=== PATIENT | female | born 1955 | race Caucasian/White ===

== ENCOUNTER → 2017-03-11 | Outpatient (CLI) | payer OTHER ==
[~2017-03-11] MED LIST: ASPIRIN81 M2 PO; BENICAR HCT 401 EACH PO; BUTRANS1 EAC4 TD; DYAZIDE 37.5-21 EACH PO; HYDROCHLOROTHIA25 M2 PO; HYDROCODONE-AP1 EA11 PO; HYDROCODONE-AP1 EA15 PO; LIPITOR20 MG PO; LIPITOR40 MG PO; LOSARTAN POTAS100 MG PO; METFORMIN HCL500 MG PO; POTASSIUM20 PO; PRILOSEC 20 MG20 MG PO; PRILOSEC40 MG PO; TOPROL XL200 MG PO; ULTRAM 50MG TAB50 MG PO; VICTOZA 3-0.6 MG/0.1 INJECTION; VITAMIN D1000 UNI1 PO; VITAMIN D2000 UNIT PO; XANAX PO; XANAX1 MG PO
== END ==
LOC: RAD 13:57
DX: J44.9 Chronic obstructive pulmonary disease, unspecified (principal)

== ENCOUNTER → 2017-08-26 | Outpatient (CLI) | payer OTHER | LOC: RAD 15:50 | DX: M79.604 Pain in right leg (principal); M79.9 Soft tissue disorder, unspecified ==

== ENCOUNTER → 2017-12-30 | Outpatient (CLI) | payer OTHER ==
[~2017-12-30] MED LIST changes: +ALBUTEROL2.5 MG/31 INH; +AZITHROMYCIN 2250 MG PO; +MOBIC15 MG PO; +ORPHENADRINE C100 M2 PO; +PREDNISONE 20 M20 MG PO
== END ==
LOC: RAD 12:03
DX: Z12.31 Encounter for screening mammogram for malignant neoplasm of breast (principal); I10 Essential (primary) hypertension

== ENCOUNTER → 2018-01-12 | Outpatient (CLI) | payer OTHER | LOC: CAT 10:30 | DX: S22.080D Wedge compression fracture of T11-T12 vertebra, subsequent encounter for fracture with routine healing (principal); M47.26 Other spondylosis with radiculopathy, lumbar region; R91.8 Other nonspecific abnormal finding of lung field; I25.10 Atherosclerotic heart disease of native coronary artery without angina pectoris; X58.XXXD Exposure to other specified factors, subsequent encounter ==

== ENCOUNTER → 2018-01-31 | Outpatient (CLI) | payer OTHER | LOC: RAD 08:34 | DX: J18.9 Pneumonia, unspecified organism (principal); I70.0 Atherosclerosis of aorta ==

== ENCOUNTER → 2018-03-09 | Outpatient (CLI) | payer OTHER | LOC: NUC 03-02 10:20 | DX: M81.0 Age-related osteoporosis without current pathological fracture (principal); M85.89 Other specified disorders of bone density and structure, multiple sites; Z78.0 Asymptomatic menopausal state ==

== ENCOUNTER → 2018-07-01 | Outpatient (CLI) | payer OTHER | LOC: ULTRA 12:55 | DX: N28.1 Cyst of kidney, acquired (principal); E27.9 Disorder of adrenal gland, unspecified; R30.0 Dysuria ==

== ENCOUNTER → 2018-09-15 | Outpatient (CLI) | payer OTHER ==
[~2018-09-15] VITALS: Ht 167.6 cm; Wt 97.5 kg
[~2018-09-15] MED LIST changes: +CALCIUM 500 +1 EAC5 PO; +CARISOPRODOL 3350 MG PO; +MAGOX 400400 MG PO; +OMEPRAZOLE40 MG PO; -PRILOSEC40 MG PO; +TOPROL XL100 MG PO; +VENTOLIN HFA 1818 GM INH; +VICTOZA0.6 MG/0.1 SUBQ; +ZOLPIDEM TARTRA10 MG PO
--- NOTE | ~2018-09-15 | P ---
[facility] [place] [address] PROCEDURE REPORT Name: AFIA MALCOLM Room #: REG [facility]#: [id number] Admission: 09/15/18 ������������������ Attend Phys: Nathan Luna MD Discharge: ������������������ Date of : 51 Report #: [id number] THIS REPORT FOR: //name// CC: Nathan Manriquez MD DATE OF SERVICE: 09/15/2018 BRIEF HISTORY: The patient is a 63-year-old woman for average risk screening colonoscopy. She reports her last colonoscopy was 10 years ago and was negative. PREOPERATIVE DIAGNOSIS: Average risk screening colonoscopy. POSTOPERATIVE DIAGNOSES: 1. Multiple diminutive polyps. 2. Moderately severe sigmoid diverticulosis coli. MEDICATIONS: Deep sedation with propofol per anesthesia. SPECIMENS: 1. Diminutive polyp at 50 cm. 2. Diminutive polyp, mid ascending colon. 3. Diminutive polyp, proximal transverse colon. ESTIMATED BLOOD LOSS: 3 mL. PROCEDURE: Colonoscopy to cecum and terminal ileum with biopsy. FINDINGS: Prior to propofol sedation, procedure of colonoscopy discussed with the patient as well as potential risks and its complications. She indicates she understands and desires to proceed. DESCRIPTION OF PROCEDURE: With the patient in left lateral decubitus position, digital examination was completed, which revealed no abnormalities. Subsequently, the Olympus video colonoscope was introduced in the rectum and advanced under direct vision to the cecum. Cecum was identified by the ileocecal valve and the appendiceal orifice. I was able to visualize the distal segment of the terminal ileum, which was inspected and noted to be unremarkable. At that point, the scope was slowly withdrawn and careful circumferential views were obtained. Upon slow withdrawal of the scope, there were some limitations of the prep. However, we were able to clean up much of this material and overall, a reasonably good prep was obtained. The mucosa was within normal limits, normal vascular pattern, normal light reflex. In the mid ascending colon, a diminutive polyp was seen and removed with biopsy forceps. In the [facility] [address] [place] [address] PROCEDURE REPORT Name: AFIA MALCOLM Room #: REG LAZARA Lee.#: [id number] Admission: 09/15/18 ������������������ Attend Phys: Nathan Luna MD Discharge: ������������������ Date of : 51 Report #: [id number] proximal transverse colon, another diminutive polyp was seen and removed with biopsy forceps. The scope was further withdrawn and no abnormalities were noted until the descending colon was reached and at 50 cm, a diminutive polyp was seen and was removed with biopsy forceps. Scope was withdrawn through the sigmoid colon. There was noted to be moderately severe diverticular disease without endoscopic evidence of diverticulitis. Scope was withdrawn. No additional neoplastic lesions were seen. Scope was withdrawn in the rectum. No abnormalities were seen. Scope was withdrawn. The patient tolerated the procedure well. CONDITION OF THE PATIENT UPON DISCHARGE: Following procedure, the patient drowsy, aroused, conversant and will be discharged home when fully ambulatory. INSTRUCTIONS TO THE PATIENT AND FAMILY AT THE TIME OF DISCHARGE: We will follow up on the path and make further recommendations. If all three polyps are adenomas, she is to return in three years. If one or two adenomas, then five years would be indicated. If none are adenomas, then 10 years would be indicated. She will return under the care of Dr. Lucrecia Manriquez and return to see me as needed. ��������������������������������������������� ���������������������������������������� By: ��������������������������������������������� 0824 1157 Nathan Luna MD /nt
--- NOTE | 2018-09-16 17:06 | PATH ---
[facility] [place] [address] PATHOLOGY RPT PROCEDURE Name: AFIA MALCOLM Room #: REG LAZARA Lee.#: [id number] ������������������ Admission: 09/15/18 ������������������ Date of : 51 Discharge: Report #: [id number] Path Case #: [id number] LCA Accession Number: [id number] . 01 Material submitted: . PART A: colon - POLYP AT 50 CM. Modifiers: 50 CM PART B: colon - POLYP AT MID ASCENDING COLON. Modifiers: mid, ascending PART C: colon - POLYP AT PROXIMAL TRANSVERSE COLON. Modifiers: transverse . 01 Clinical history: . Screening, history of polyps Colon polyp, diverticulosis . 02 Diagnosis: A. Polyp, at 50 cm, endoscopic biopsy: - Inflamed hyperplastic polyp. - Negative for dysplasia. . B. Polyp, at mid ascending colon, endoscopic biopsy: - Hyperplastic polyp. - Negative for dysplasia. . C. Polyp, at proximal transverse colon, endoscopic biopsy: - Minute tubular adenoma/crypt adenoma. - Negative for high-grade dysplasia. . (IUV:quality management coordinator; 09/16/2018) MBR/09/16/2018 . 02 Electronically signed: . Lona Kiran MD, Pathologist NPI- [id number] . 01 Gross description: . A. The specimen is received in formalin, labeled "Marco, Afia, polyp at 50 cm" and consists of a fragment of cummins tissue measuring 0.4 x 0.4 x 0.2 cm which is entirely submitted in A1. . B. The specimen is received in formalin, labeled "Malcolm, Afia, polyp at mid ascending colon" and consists of a fragment of cummins tissue measuring 0.5 x 0.3 x 0.2 cm which is entirely submitted in B1. . C. The specimen is received in formalin, labeled "Marco, Afia, polyp at proximal transverse colon" and consists of a fragment of cummins tissue measuring 0.5 x 0.4 x 0.1 cm which is entirely submitted in C1. (SDY; 09/15/2018) SYU/[address] [address] PATHOLOGY RPT PROCEDURE Name: AFIA MALCOLM PATRICIA Room #: REG CLWilliam Collado#: [id number] ������������������ Admission: 09/15/18 ������������������ Date of : 51 Discharge: Report #: [id number] Path Case #: [id number] . 02 Pathologist provided ICD-10: K63.5, D12.3 . 02 CPT . 191676, 096970, 931748 Specimen Comment: A courtesy copy of this report has been sent to Specimen Comment: [phone], . Specimen Comment: Report sent to / DR CULLEN Performed at: [address], [place] [id number] MD Armaan Crawley MD Phone: [phone] Performed at: [address] [id number] MD Lona Kiran MD Phone: [phone]
== END | disposition home or self-care (01) ==
LOC: GI 08-18 14:54
DX: Z12.11 Encounter for screening for malignant neoplasm of colon (principal); Z86.010 Personal history of colon polyps; D12.3 Benign neoplasm of transverse colon; K63.5 Polyp of colon; K57.30 Diverticulosis of large intestine without perforation or abscess without bleeding; K21.9 Gastro-esophageal reflux disease without esophagitis; I10 Essential (primary) hypertension; E11.9 Type 2 diabetes mellitus without complications; I25.2 Old myocardial infarction; E78.00 Pure hypercholesterolemia, unspecified; F32.9 Major depressive disorder, single episode, unspecified; J43.9 Emphysema, unspecified; F41.9 Anxiety disorder, unspecified; F17.210 Nicotine dependence, cigarettes, uncomplicated; Z95.0 Presence of cardiac pacemaker; Z95.5 Presence of coronary angioplasty implant and graft; Z98.890 Other specified postprocedural states; Z79.899 Other long term (current) drug therapy; Z90.49 Acquired absence of other specified parts of digestive tract; Z90.710 Acquired absence of both cervix and uterus; Z98.84 Bariatric surgery status; Z98.41 Cataract extraction status, right eye; Z98.42 Cataract extraction status, left eye; Z79.4 Long term (current) use of insulin; Z88.8 Allergy status to other drugs, medicaments and biological substances; Z79.82 Long term (current) use of aspirin
CPT/HCPCS: 62110; 62900

== ENCOUNTER → 2019-06-28 | Outpatient (CLI) | payer OTHER | LOC: CAT 05-19 10:47 → RAD 11:02 → CAT 11:02 | DX: Z12.31 Encounter for screening mammogram for malignant neoplasm of breast (principal); J43.8 Other emphysema; D35.01 Benign neoplasm of right adrenal gland; R91.1 Solitary pulmonary nodule ==

== ENCOUNTER → 2019-08-16 | Outpatient (CLI) | payer OTHER | LOC: SJCVC 14:52 | PROVIDERS: ATTEND Internal Medicine Cardiovascular Disease | DX: R94.31 Abnormal electrocardiogram [ECG] [EKG] (principal); I25.10 Atherosclerotic heart disease of native coronary artery without angina pectoris; I10 Essential (primary) hypertension; R60.9 Edema, unspecified; I47.2 Ventricular tachycardia; E78.5 Hyperlipidemia, unspecified; E78.00 Pure hypercholesterolemia, unspecified; Z95.810 Presence of automatic (implantable) cardiac defibrillator; Z79.82 Long term (current) use of aspirin; Z79.899 Other long term (current) drug therapy; Z82.49 Family history of ischemic heart disease and other diseases of the circulatory system; F17.210 Nicotine dependence, cigarettes, uncomplicated ==

== ENCOUNTER → 2019-09-11 | Outpatient (CLI) | payer OTHER | LOC: SJCVCIMAG 11:09 | PROVIDERS: ATTEND Internal Medicine Cardiovascular Disease | DX: I25.10 Atherosclerotic heart disease of native coronary artery without angina pectoris (principal); I49.3 Ventricular premature depolarization; I10 Essential (primary) hypertension; E78.00 Pure hypercholesterolemia, unspecified; J44.9 Chronic obstructive pulmonary disease, unspecified; E11.9 Type 2 diabetes mellitus without complications; F17.210 Nicotine dependence, cigarettes, uncomplicated; Z79.899 Other long term (current) drug therapy ==

== ENCOUNTER 2019-10-12 09:39 | Emergency (ER) | payer OTHER ==
[~2019-10-12] VITALS: Ht 165.1 cm; Wt 93.0 kg
[2019-10-12 10:06] LABS: ABSOLUTE NEUTROPHILS 3.7 thou/uL (1.4-8.2); BASOPHILS 1.1 % (0.0-2.0); EOSINOPHILS 2.4 % (0.0-3.0); HEMATOCRIT 40.5 % (37.0-47.0); HEMOGLOBIN 13.6 gm/dL (12.0-15.0); LYMPHOCYTES 30.6 % (24.0-44.0); MCH 30.6 pg (26.0-34.0); MCHC 33.7 g/dL (28.0-37.0); MCV 90.8 fL (80.0-100.0); MONOCYTES 7.8 % (1.0-8.0); PLATELET COUNT 202 thou/uL (150-400); POLYS 58.1 % (36.0-66.0); RBC 4.46 mil/uL (4.20-5.00); RDW 13.8 % (10.5-14.5); WBC 6.3 thou/uL (4.0-11.0)
[2019-10-12 10:18] LABS: ANION GAP 9 mmol/L (7-16); BUN 10 mg/dL (7-18); CHLORIDE 98 mmol/L (98-107); CO2 27 mmol/L (21-32); CREATININE 0.9 mg/dL (0.6-1.0); GLUCOSE 140 mg/dL (74-106); POTASSIUM 4.1 mmol/L (3.5-5.1); SODIUM 134 mmol/L (136-145)
[2019-10-12 10:24] LABS: MAGNESIUM 1.9 mg/dL (1.8-2.4); TROPONIN-I <0.06 ng/mL (<0.06)
--- NOTE | 2019-10-12 10:59 | EKG ---
[facility] [place] [address] ELECTROCARDIOGRAM REPORT Name: AFIA MALCOLM Room #: REG [facility].#: [id number] Admission: 10/12/19 Attend Phys: Discharge: Date of : 51 Report #: [id number] THIS REPORT FOR: cc: Lucrecia Manriquez MD, Nora P. MD Couchonnal, Luis F. MD ~ THIS REPORT FOR: //name// [facility] ED Test Date: 2019-10-12 Test Time: 09:50:17 Pat Name: AFIA MALCOLM Department: Room: Gender: F Collateral Specialist: jarek : 1955 Requested By: Sawyer Walsh Order Number: [id number] : Waldo Yang Measurements Intervals [place] Rate: 78 P: 79 [place]: 53 QRS: -30 QRSD: 97 T: 31 QT: 406 QTc: 463 Interpretive Statements Sinus rhythm Short KS interval Abnormal R-wave progression, late transition Inferior infarct, old Compared to ECG 12/12/2017 01:58:03 Short KS interval now present Myocardial infarct finding now present Poor R-wave progression no longer present Electronically Signed On 10-12-2019 10:59:36 CDT by Waldo Yang [email or web address] <ELECTRONICALLY SIGNED> By: Waldo Yang MD 10/12/19 1059 Waldo Yang MD /EPI
[2019-10-12] MEDS ORDERED: TRULICITY0.75 MG/0. SUBQ (12:06)
[2019-10-12 12:55] VITALS: BP 115/68
== END 2019-10-12 12:56 | disposition home or self-care (01) ==
LOC: ER 09:39
PROVIDERS: Emergency Medicine
DX: S00.12XA Contusion of left eyelid and periocular area, initial encounter (principal); M25.561 Pain in right knee; M25.562 Pain in left knee; M43.6 Torticollis; M25.511 Pain in right shoulder; M25.512 Pain in left shoulder; R55 Syncope and collapse; I25.2 Old myocardial infarction; I10 Essential (primary) hypertension; E78.00 Pure hypercholesterolemia, unspecified; K21.9 Gastro-esophageal reflux disease without esophagitis; J44.9 Chronic obstructive pulmonary disease, unspecified; E11.9 Type 2 diabetes mellitus without complications; F17.210 Nicotine dependence, cigarettes, uncomplicated; Z88.8 Allergy status to other drugs, medicaments and biological substances; Z79.899 Other long term (current) drug therapy; Z79.82 Long term (current) use of aspirin; Z90.49 Acquired absence of other specified parts of digestive tract; Z90.711 Acquired absence of uterus with remaining cervical stump; Z95.5 Presence of coronary angioplasty implant and graft; W01.198A Fall on same level from slipping, tripping and stumbling with subsequent striking against other object, initial encounter; Y93.89 Activity, other specified; Y92.098 Other place in other non-institutional residence as the place of occurrence of the external cause; Y99.8 Other external cause status

== ENCOUNTER → 2020-04-25 | Outpatient (CLI) | payer OTHER ==
[~2020-04-25] MED LIST changes: +TRULICITY0.75 MG/0. SUBQ
== END ==
LOC: SJCVC 10:52
PROVIDERS: ATTEND Internal Medicine Cardiovascular Disease
DX: R94.31 Abnormal electrocardiogram [ECG] [EKG] (principal); I25.10 Atherosclerotic heart disease of native coronary artery without angina pectoris; I47.2 Ventricular tachycardia; I10 Essential (primary) hypertension; E78.00 Pure hypercholesterolemia, unspecified; R60.9 Edema, unspecified; E11.9 Type 2 diabetes mellitus without complications; J43.9 Emphysema, unspecified; E78.5 Hyperlipidemia, unspecified; F17.210 Nicotine dependence, cigarettes, uncomplicated; Z95.5 Presence of coronary angioplasty implant and graft; Z95.810 Presence of automatic (implantable) cardiac defibrillator; Z88.8 Allergy status to other drugs, medicaments and biological substances; Z72.89 Other problems related to lifestyle; Z79.899 Other long term (current) drug therapy; Z82.49 Family history of ischemic heart disease and other diseases of the circulatory system

== ENCOUNTER → 2020-06-18 | Outpatient (CLI) | payer OTHER | LOC: CAT 06-13 08:00 | PROVIDERS: ATTEND Family Medicine | DX: J32.9 Chronic sinusitis, unspecified (principal) ==

== ENCOUNTER → 2020-07-08 | Outpatient (CLI) | payer OTHER | LOC: BC 12:41 | PROVIDERS: ATTEND Family Medicine | DX: Z12.31 Encounter for screening mammogram for malignant neoplasm of breast (principal) ==

== ENCOUNTER → 2020-11-05 | Outpatient (CLI) | payer OTHER | LOC: SJCVC 13:02 | PROVIDERS: ATTEND Internal Medicine Cardiovascular Disease | DX: R94.31 Abnormal electrocardiogram [ECG] [EKG] (principal); I10 Essential (primary) hypertension; I25.10 Atherosclerotic heart disease of native coronary artery without angina pectoris; E78.00 Pure hypercholesterolemia, unspecified; I25.2 Old myocardial infarction; I47.2 Ventricular tachycardia; E11.9 Type 2 diabetes mellitus without complications; J43.9 Emphysema, unspecified; E78.5 Hyperlipidemia, unspecified; F17.210 Nicotine dependence, cigarettes, uncomplicated; Z95.5 Presence of coronary angioplasty implant and graft; Z90.49 Acquired absence of other specified parts of digestive tract; Z90.710 Acquired absence of both cervix and uterus; Z95.810 Presence of automatic (implantable) cardiac defibrillator; Z88.8 Allergy status to other drugs, medicaments and biological substances; Z79.82 Long term (current) use of aspirin; Z79.899 Other long term (current) drug therapy; Z82.49 Family history of ischemic heart disease and other diseases of the circulatory system ==

== ENCOUNTER → 2020-12-03 | Outpatient (CLI) | payer OTHER ==
[2020-12-03 14:21] LABS: CREATININE 0.8 mg/dL (0.6-1.0)
== END ==
LOC: CAT 12:57
PROVIDERS: ATTEND Surgery
DX: K57.30 Diverticulosis of large intestine without perforation or abscess without bleeding (principal); N28.1 Cyst of kidney, acquired; I25.10 Atherosclerotic heart disease of native coronary artery without angina pectoris; R91.8 Other nonspecific abnormal finding of lung field; Z95.0 Presence of cardiac pacemaker

== ENCOUNTER → 2021-01-01 | Outpatient (CLI) | payer OTHER | LOC: SJCVC 14:16 | PROVIDERS: ATTEND Nuclear Medicine Nuclear Cardiology | DX: I70.1 Atherosclerosis of renal artery (principal); I73.9 Peripheral vascular disease, unspecified; I25.10 Atherosclerotic heart disease of native coronary artery without angina pectoris; I10 Essential (primary) hypertension; E78.00 Pure hypercholesterolemia, unspecified; E11.9 Type 2 diabetes mellitus without complications; J44.9 Chronic obstructive pulmonary disease, unspecified; R60.0 Localized edema; E03.9 Hypothyroidism, unspecified; I21.9 Acute myocardial infarction, unspecified; I47.2 Ventricular tachycardia; E55.9 Vitamin D deficiency, unspecified; Z79.899 Other long term (current) drug therapy; Z88.8 Allergy status to other drugs, medicaments and biological substances; Z87.891 Personal history of nicotine dependence; Z82.49 Family history of ischemic heart disease and other diseases of the circulatory system ==

== ENCOUNTER → 2021-01-08 | Outpatient (CLI) | payer OTHER | LOC: SJCVC 11:11 | PROVIDERS: ATTEND Nurse Practitioner | DX: R94.31 Abnormal electrocardiogram [ECG] [EKG] (principal); I25.10 Atherosclerotic heart disease of native coronary artery without angina pectoris; I47.2 Ventricular tachycardia; I10 Essential (primary) hypertension; E78.00 Pure hypercholesterolemia, unspecified; R60.9 Edema, unspecified; I73.9 Peripheral vascular disease, unspecified; J43.9 Emphysema, unspecified; E03.9 Hypothyroidism, unspecified; F17.210 Nicotine dependence, cigarettes, uncomplicated; Z95.810 Presence of automatic (implantable) cardiac defibrillator; Z79.82 Long term (current) use of aspirin; Z79.899 Other long term (current) drug therapy; Z88.8 Allergy status to other drugs, medicaments and biological substances ==

== ENCOUNTER → 2021-01-16 | Outpatient (CLI) | payer OTHER ==
[~2021-01-16] VITALS: Ht 165.1 cm; Wt 68.9 kg
[~2021-01-16] MED LIST changes: +PLAVIX 75 MG TA75 MG PO
[2021-01-16 07:30] VITALS: BP 142/70
[2021-01-16 07:49] LABS: HEMATOCRIT 35.3 % (37.0-47.0); HEMOGLOBIN 11.8 gm/dL (12.0-15.0); MCHC 33.4 g/dL (28.0-37.0); MCV 89.9 fL (80.0-100.0); RBC 3.93 mil/uL (4.20-5.00); RDW 13.2 % (10.5-14.5); WBC 5.4 thou/uL (4.0-11.0)
[2021-01-16 07:59] LABS: CALCIUM 8.3 mg/dL (8.5-10.1); CREATININE 0.9 mg/dL (0.6-1.0); POTASSIUM 3.5 mmol/L (3.5-5.1)
--- NOTE | 2021-01-16 14:18 | CATHLAB ---
[facility] [place] [address] INVASIVE PROCEDURE REPORT Name: AFIA MALCOLM Room #: REG LAZARA Lee.#: [id number] Admission: 01/16/21 Attend Phys: Thomas Thibodeaux MD Discharge: Date of : 51 Report #: [id number] THIS REPORT FOR: cc: Lucrecia Manriquez MD, Nora P. MD Park, Jin S. MD ~ APPROVED REPORT Study performed: 01/16/2021 09:07:59 Patient Details Patient Status: Out-Patient Room #: The patient is a 65 year-old female Event Personnel Mark Clay Directional Bore Operator, Lanny Angel RTR Monitor, Geeta Doan RT(R)() Aldo Rondon Jessica RN mentally impaired teacher Performed Left Heart Cath w/or w/o Coronaries 0337237 C FFR 9993767 FFR Hemostasis w/ Mynx Indication Dyspnea, Unstable angina , Chest pain Risk Factors Peripheral Vascular Disease, Hypercholesterolemia, Coronary Artery DiseaseHypertension, Diabetes Tobacco History () Previous Procedures/Diagnoses Previous PCI, Previous Femoral Procedure Procedure Narrative The was infiltrated with 1% Lidocaine subcutaneous anesthesia. A SHEATH BRITE-TIP 6F X 11CM (976306) sheath was inserted into the RFA^. Coronary angiography was performed using coronary diagnostic catheters. The right coronary system was accessed and visualized with a JR4 catheter. The left coronary system was accessed and visualized with a JL4 catheter. The left ventricle was accessed and visualized with a JR4 catheter. Closure device was deployed with a Fr MYNXGRIP 6/7F #[id number]. The patient tolerated the procedure well and there were no complications associated with the procedure. There was no hematoma. [facility] [address] [place] [address] INVASIVE PROCEDURE REPORT Name: AFIA MALCOLM Room #: REG [facility]#: [id number] Admission: 01/16/21 Attend Phys: Thomas Thibodeaux, Discharge: Date of : 51 Report #: [id number] Intraoperative Conscious Sedation Fentanyl 100 mcg No sedation was used. Contrast and radiation totals are a combined total of both the heart cath and the lower extremity runoff. Fluoro Time: 10.12 minutes Dose: DAP 78500.00 cGycm2 1432 mGy Contrast Type and Amount: Omnipaque 100 ml Coronary Angiography The patient's coronary anatomy is right dominant. Diagnostic Cath Left Main The left main artery is a large-caliber vessel, patent with no flow-limiting lesions. LAD The LAD is a moderate-sized caliber vessel, traversing the anterior wall and terminating at the apex. There is a borderline stenosis in the midsegment, 50 to 70%. IFR was performed. Diagonal 1 This is a small to moderate-sized caliber vessel, patent with no flow-limiting lesions. Circumflex There is a stent in the proximal/mid segment, patent with mild to moderate restenosis, 30 to 40%. OM1 There is a small caliber vessel, with no flow-limiting lesions. OM2 This is a moderate-sized caliber vessel, patent with no flow-limiting lesions. Right Coronary The RCA is a dominant vessel with a severe occlusion in the midsegment, 80%. There is another occlusion in the distal segment, 80%. R PDA This is a moderate-sized caliber vessel, with mild disease proximally. RPLV This is a moderate-sized caliber vessel, patent with no flow-limiting lesions. Left Ventriculography Left Ventriculography was not performed. An LVEDP was measured and there is no gradient across the outflow tract. Hemodynamics The aortic pressure is 124/62 mmHg with a mean of 87 mmHg. The left ventricular pressure is 134/11 mmHg with a mean of mmHg. The left ventricular end diastolic pressure is 20 mmHg. PCI Technique Lesion Percutaneous coronary intervention was performed on the Right [facility] [address] [place] [address] INVASIVE PROCEDURE REPORT Name: AFIA MALCOLM [facility] #: [facility] [id number] Admission: 01/16/21 Attend Phys: Thomas Thibodeaux, Discharge: Date of : 51 Report #: [id number] Renal. Conclusion 1. There are severe occlusions in the mid and distal RCA. 2. There is a borderline stenosis in the mid LAD. IFR was 0.96, nonischemic. 3. There is a patent stent in the left circumflex artery with mild to moderate restenosis. 4. Recommend aggressive risk factor management and staged PCI of the RCA stenoses. <ELECTRONICALLY SIGNED> By: Mark Clay MD 01/16/21 1418 141 141 Mark Clay MD /INF
== END | disposition home or self-care (01) ==
LOC: CATH 06:44
PROVIDERS: ATTEND Nuclear Medicine Nuclear Cardiology
DX: I25.110 Atherosclerotic heart disease of native coronary artery with unstable angina pectoris (principal); I15.0 Renovascular hypertension; I70.1 Atherosclerosis of renal artery; I73.9 Peripheral vascular disease, unspecified; M79.604 Pain in right leg; M79.605 Pain in left leg; R06.00 Dyspnea, unspecified; I10 Essential (primary) hypertension; E78.00 Pure hypercholesterolemia, unspecified; E11.9 Type 2 diabetes mellitus without complications; J44.9 Chronic obstructive pulmonary disease, unspecified; E03.9 Hypothyroidism, unspecified; I25.2 Old myocardial infarction; F17.210 Nicotine dependence, cigarettes, uncomplicated; Z98.890 Other specified postprocedural states; Z79.899 Other long term (current) drug therapy; Z79.4 Long term (current) use of insulin

== ENCOUNTER 2021-01-27 09:25 | Observation (INO) | payer OTHER ==
[~2021-01-27] VITALS: Ht 165.1 cm; Wt 73.6 kg
[2021-01-27 10:15] VITALS: BP 139/77
[2021-01-27] MEDS ORDERED: HYDROXYZINE HCL25 M2 PO (10:34)
[2021-01-27 14:00] VITALS: BP 130/80
--- NOTE | 2021-01-27 14:57 | CATHLAB ---
[facility] [address] [place] [address] INVASIVE PROCEDURE REPORT Name: AFIA MALCOLM Room #: 211-[facility] Yossi Collado#: [id number] Admission: 01/27/21 Attend Phys: Mark Clay MD Discharge: Date of : 51 Report #: [id number] THIS REPORT FOR: cc: Lucrecia Manriquez MD, Nora P. MD Park, Jin S. MD ~ APPROVED REPORT Study performed: 01/27/2021 11:20:48 Patient Details Patient Status: Out-Patient Room #: The patient is a 65 year-old female Event Personnel Mark Clay Negative Assembler, Roderick Castillo RTR Scrub, Courtney Abdi RTR Scrub, Charisse Dorantes RTR, NETEZZA DEVELOPER Monitor, Carlyle Reaves RN coffee host Performed Art Access - L femoral artery* JOSE Place w/wo Plasty Single RCA 041853 Hemostasis w/ Mynx Indication Dyspnea, Positive stress test, Chest pain, The patient has recent cardiac catheterization revealing severe occlusions in the mid and distal RCA. The RCA is tortuous and heavily calcified. She returns for staged PCI. Risk Factors Peripheral Vascular Disease, Chronic Lung DiseaseHypercholesterolemia, Coronary Artery DiseaseHypertension, Diabetes Tobacco History () Previous Procedures/Diagnoses Previous PCI Procedure Narrative The Left Groin^ was infiltrated with 1% Lidocaine subcutaneous anesthesia. A PINNACLE 6FR Sheath #[id number] sheath was inserted into the LFA^. Coronary angiography was performed using coronary diagnostic catheters. The right coronary system was accessed and visualized with a LAUNCHER 6FR AL75 #[id number] catheter. Pre-demployment femoral angiogram was performed . Closure device was deployed with a [facility] [address] [place] [address] INVASIVE PROCEDURE REPORT Name: AFIA MALCOLM Room #: [address] [place] [address] [place] [facility].#: [id number] Admission: 01/27/21 Attend Phys: Mark Clay MD Discharge: Date of : 51 Report #: [id number] Fr MYNXGRIP 6/7F #[id number]. The patient tolerated the procedure well and there were no complications associated with the procedure. There was no hematoma. Intraoperative Conscious Sedation Fentanyl 100 mcg No conscious sedation was used. Fluoro Time: 25.30 minutes Dose: DAP 19370.20 cGycm2 3945 mGy Contrast Type and Amount: Omnipaque 200 ml Diagnostic Cath Right Coronary The RCA is tortuous and heavily calcified. There are severe occlusions in the mid and distal segments. Hemodynamics The aortic pressure is 152/66 mmHg with a mean of 102 mmHg. PCI Technique Lesion Percutaneous coronary intervention was performed on the mid right coronary artery. The lesion stenosis prior to intervention was 80% with ANAND 3 flow. A LAUNCHER 6FR AL75 #[id number] Guide Catheter was used to engage the ostium. A Luge Wire .014 x 182CM #[id number] Interventional Guidewire was used to cross the lesion. BALLOON DILATION A Balloon catheter TREK RX 2.25 X 8 was inserted and inflated up to 10.00atm for 19seconds. STENT DEPLOYMENT A drug-eluting stent XIENCE VIPIN RX 3.25 X 12 #[id number] was inserted and inflated up to 16.00atm for 17seconds. After deployment of the 3.25 mm JOSE in the mid RCA stenosis, there was a dissection just distal to the stent. This was covered with a 3.0 x 8 mm JOSE, inflated up to 16 josefina. POST STENT DEPLOYMENT BALLOON DILATION A Balloon catheter TREK NC RX 3.25 X 12 #[id number] was inserted and inflated up to 18.00atm for 13seconds. Additional Inflation: 16.00atm for 13seconds. Additional Inflation: josefina for seconds. Both stents were postdilated with 3.25 mm noncompliant balloon, up to 18 josefina. Final angiography reveals 0 % stenosis with ANAND 3 flow. [facility] [address] [place] [address] INVASIVE PROCEDURE REPORT Name: AFIA MALCOLM Room #: 211-P [facility] IN M.R.#: [id number] Admission: 01/27/21 Attend Phys: Mark Clay MD Discharge: Date of : 51 Report #: [id number] PCI Technique Lesion 2 Percutaneous Coronary Intervention was performed on the Distal right coronary artery. The lesion stenosis prior to intervention was 80% with ANAND 3 flow. A LAUNCHER 6FR AL75 #[id number] Guide Catheter was used to engage the ostium. A Luge Wire .014 x 182CM #[id number] Interventional Guidewire was used to cross the lesion. Balloon Dilation A Balloon catheter TREK RX 2.25 X 8 was inserted and inflated up to 12.00atm for 20seconds. Additional Inflation: 14atm for 19seconds. A second balloon catheter TREK 2.50mm x 8mm was inserted and inflated up to 12 josefina for 19 seconds. Additional inflation: 14 josefina for 26 seconds. Final angiography reveals 45 % stenosis with ANAND 3 flow. Comments Attempts at delivering a 2.5 mm stent into the distal RCA stenosis was unsuccessful due to excessive tortuosity and calcification in the RCA proper. Even with the use of a budddy wire, this could not be accomplished. Conclusion 1. PCI with placement of drug-eluting stents in the mid RCA stenotic area. 2. PCI with balloon angioplasty with a 2.5 mm semicompliant balloon into the distal RCA stenosis. Unable to deliver a stent due to excessive tortuosity and calcification. 3. The patient tolerated the procedure and remained hemodynamically stable. 4. Recommend dual antiplatelet therapy and aggressive risk factor management. <ELECTRONICALLY SIGNED> By: Mark Clay MD 01/27/21 1457 56 56 Mark Clay MD /INF
[2021-01-27 15:00] VITALS: BP 145/73
--- NOTE | 2021-01-27 15:43 | NUR ---
PT ARRIVED TO UNIT AT 1415. PT IS ON BED REST X 3 HOURS PER ZYGLO TECHNICIAN REPORT. PTS SITE IS CHECKED AND IS SOFT. NO HEMATOMA NOTED. PT HAS +2 PULSES IN L DORSALIS PEDIS WELL RIGHT. PT IS PLESANT AND COOPERATIVE WITH ASSESSMENT. PT REQUESTED FOOD. PT IS RESTING IN BED AT THIS TIME. PT HAS TELE MONITOR ON AND IS SINUS ÁNGELA. WILL CONTINUE TO MONITOR.
[2021-01-27 19:59] VITALS: BP 127/79
[2021-01-28 00:12] VITALS: BP 128/79
--- NOTE | 2021-01-28 01:45 | NUR ---
PT ALERT AND ORIENTED X4 WITH PERIODS OF ANXIETY NOTED. XANAX, AMBIEN AND HYDROCODONE GIVEN FOR SLEEP AND BACK PAIN. PT IS NOW SLEEPING QUIETLY NO S/S DISTRESS. LEFT GROIN HAS PULSE AND DRESSING REMAINS CLEAN DRY AND INTACT WITH VERY SMALL AMT DRIED BLOOD NOTED. PEDAL PULSES PALPABLE.
[2021-01-28 03:15] VITALS: BP 108/73
[2021-01-28 04:07] LABS: ALBUMIN 2.9 g/dL (3.4-5.0); CALCIUM 8.4 mg/dL (8.5-10.1); CREATININE 0.7 mg/dL (0.6-1.0); POTASSIUM 3.8 mmol/L (3.5-5.1); TOTAL BILIRUBIN 0.5 mg/dL (0.2-1.0); TOTAL PROTEIN 6.4 g/dL (6.4-8.2)
[2021-01-28 04:57] LABS: HEMATOCRIT 34.1 % (37.0-47.0); HEMOGLOBIN 11.5 gm/dL (12.0-15.0); MCH 30.5 pg (26.0-34.0); MCHC 33.8 g/dL (28.0-37.0); MCV 90.2 fL (80.0-100.0); RBC 3.78 mil/uL (4.20-5.00); RDW 13.2 % (10.5-14.5); WBC 4.9 thou/uL (4.0-11.0)
--- NOTE | 2021-01-28 05:56 | NUR ---
VSS AFEBRILE THIS AM. UP ABULATES TO BR STANDBY ASSISTANCE. DRESSING TO LEFT GROIN REMAINS INTACT WITH SCANT ANT BLOODY DRAINAGE. NO HEMATOMA NOTED, PEDAL PULSES PALPABLE. HYDROCODONE GIVEN FOR C/O BACK PAIN,
[2021-01-28 07:10] VITALS: BP 118/72
--- NOTE | 2021-01-28 07:48 | EKG ---
[address] [address] ELECTROCARDIOGRAM REPORT Name: AFIA MALCOLM Room #: 211-[facility]..#: [id number] Admission: 01/27/21 Attend Phys: Mark Clay MD Discharge: Date of : 53 Report #: [id number] [facility] Test Date: 2021-01-28 Test Time: 07:26:51 Pat Name: AFIA MALCOLM Department: Room: 211 Gender: F Clerk Analyst: RADHA : 1955 Requested By: Mark Clay Order Number: [id number] : Nhan Salinas Measurements Intervals [place] Rate: 61 P: 0 VT: 49 QRS: -3 QRSD: 92 T: 16 QT: 417 QTc: 420 Interpretive Statements Sinus rhythm Short [place] interval Low voltage, extremity leads Anteroseptal infarct, old Compared to ECG 10/12/2019 09:50:17 Low QRS voltage now present Myocardial infarct finding still present Electronically Signed On 01-28-2021 7:48:22 CDT by Nhan Salinas [email or web address] <ELECTRONICALLY SIGNED> By: hNan Salinas MD, [facility] 01/28/21747 5 5 Nhan Salinas MD, [facility] /EPI
[2021-01-28] MEDS ORDERED: EFFIENT10 MG PO ×2 (08:01→08:36)
[2021-01-28 09:16] VITALS: BP 118/72
--- NOTE | 2021-01-28 09:26 | NUR ---
Assumed care of pt this AM. Pt is A&O x4, on 2L NC currently which she wears at HS for reported COPD. SR 1AVB on the monitor. Pt denies any current chest pain. Lt groin site C/D/I. Flu vaccine given. Plan to discharge home today.
[2021-01-28 11:38] VITALS: BP 118/72
== END 2021-01-28 11:39 | disposition home or self-care (01) ==
LOC: CATH 09:25 → 2N 14:38
PROVIDERS: ADMIT Internal Medicine Cardiovascular Disease; ATTEND Internal Medicine Cardiovascular Disease
DX: I25.110 Atherosclerotic heart disease of native coronary artery with unstable angina pectoris (principal); I10 Essential (primary) hypertension; E11.9 Type 2 diabetes mellitus without complications; E78.5 Hyperlipidemia, unspecified; J44.9 Chronic obstructive pulmonary disease, unspecified; F17.200 Nicotine dependence, unspecified, uncomplicated; Z79.82 Long term (current) use of aspirin; Z79.899 Other long term (current) drug therapy; Z99.81 Dependence on supplemental oxygen; Z23 Encounter for immunization

== ENCOUNTER → 2021-02-20 | Outpatient (CLI) | payer OTHER ==
[~2021-02-20] MED LIST changes: +EFFIENT10 MG PO; +HYDROXYZINE HCL25 M2 PO
== END ==
LOC: SJCVC 14:37
PROVIDERS: ATTEND Internal Medicine Cardiovascular Disease
DX: R94.31 Abnormal electrocardiogram [ECG] [EKG] (principal); I25.10 Atherosclerotic heart disease of native coronary artery without angina pectoris; I10 Essential (primary) hypertension; J44.9 Chronic obstructive pulmonary disease, unspecified; E11.9 Type 2 diabetes mellitus without complications; E78.5 Hyperlipidemia, unspecified; E03.9 Hypothyroidism, unspecified; E78.00 Pure hypercholesterolemia, unspecified; F17.210 Nicotine dependence, cigarettes, uncomplicated; Z88.8 Allergy status to other drugs, medicaments and biological substances; Z79.82 Long term (current) use of aspirin; Z79.891 Long term (current) use of opiate analgesic; Z79.899 Other long term (current) drug therapy; Z95.818 Presence of other cardiac implants and grafts

== ENCOUNTER → 2021-05-20 | Outpatient (CLI) | payer OTHER | LOC: SJCVCIMAG 10:04 | PROVIDERS: ATTEND Internal Medicine Cardiovascular Disease | DX: I65.23 Occlusion and stenosis of bilateral carotid arteries (principal); I08.1 Rheumatic disorders of both mitral and tricuspid valves; N28.1 Cyst of kidney, acquired; I10 Essential (primary) hypertension; I70.1 Atherosclerosis of renal artery; I73.9 Peripheral vascular disease, unspecified; I77.9 Disorder of arteries and arterioles, unspecified; I25.10 Atherosclerotic heart disease of native coronary artery without angina pectoris; E11.9 Type 2 diabetes mellitus without complications; I74.8 Embolism and thrombosis of other arteries; I72.9 Aneurysm of unspecified site; I47.2 Ventricular tachycardia; J44.9 Chronic obstructive pulmonary disease, unspecified; Z72.0 Tobacco use; Z88.8 Allergy status to other drugs, medicaments and biological substances; Z79.899 Other long term (current) drug therapy; Z88.1 Allergy status to other antibiotic agents; Z95.828 Presence of other vascular implants and grafts ==